=== PATIENT | male | born 1970 | race Caucasian/White ===

== ENCOUNTER 2019-03-29 22:15 | Inpatient (IN) | payer OTHER ==
[~2019-03-29] VITALS: Ht 177.8 cm; Wt 62.6 kg
[2019-03-29 22:16] VITALS: BP 201/127
[2019-03-29] MEDS ORDERED: PROTONIX40 M1 PO (22:20)
[2019-03-29] MEDS ORDERED: CARAFATE1 GM/10 ML PO (22:20)
[2019-03-29] MEDS ORDERED: ACCUNEB SO1.25 MG/1 INH (22:20)
[2019-03-29 22:53] LABS: URINE BILIRUBIN NEGATIVE (Negative); URINE BLOOD NEGATIVE (Negative); URINE CLARITY CLEAR; URINE COLOR YELLOW; URINE GLUCOSE-RANDOM* NEGATIVE (Negative); URINE KETONES NEGATIVE (Negative); URINE LEUKOCYTES-REFLEX NEGATIVE (Negative); URINE NITRITE-REFLEX NEGATIVE (Negative); URINE PROTEIN (DIPSTICK) 1+ (Negative); URINE SPECIFIC GRAVITY 1.015 (1.005-1.035); URINE UROBILINOGEN 0.2 E.U./dl (0.2-1.0)
[2019-03-29 22:54] LABS: ABSOLUTE NEUTROPHILS 6.4 thou/uL (1.4-8.2); BASOPHILS 1.1 % (0.0-2.0); HEMATOCRIT 42.1 % (42.0-52.0); HEMOGLOBIN 13.2 gm/dL (14.0-18.0); LYMPHOCYTES 30.1 % (24.0-44.0); MCH 19.8 pg (26.0-34.0); MCHC 31.3 g/dL (28.0-37.0); MCV 63.2 fL (80.0-100.0); PLATELET COUNT 495 thou/uL (150-400); POLYS 57.8 % (36.0-66.0); RBC 6.67 mil/uL (4.50-6.00); RDW 21.4 % (10.5-14.5)
[2019-03-29 23:03] LABS: AMP/METHAMP Negative (Negative); BARBITURATES Negative (Negative); BENZODIAZEPINES Negative (Negative); COCAINE Negative (Negative); METHADONE Negative (Negative); OPIATES Negative (Negative); PCP Negative (Negative)
[2019-03-29 23:05] LABS: BACTERIA-REFLEX None Seen /HPF (None Seen); CASTS None Seen /LPF (None Seen); CRYSTALS None Seen /LPF (None Seen); MUCUS None Seen strn/LPF (None Seen); SQUAMOUS None Seen /LPF (0-3); URINE RBC None Seen /HPF (0-2); URINE WBC-REFLEX None Seen /HPF (0-5)
[2019-03-29 23:11] LABS: CREATININE 1.1 mg/dL (0.7-1.3); POTASSIUM 3.4 mmol/L (3.5-5.1)
[2019-03-29 23:17] LABS: ALBUMIN 4.5 g/dL (3.4-5.0); TOTAL BILIRUBIN 0.8 mg/dL (<0.1-1.0); TOTAL PROTEIN 9.1 g/dL (6.4-8.2)
[2019-03-29 23:36] LABS: ANISOCYTOSIS 2+; HYPOCHROMASIA 3+
[2019-03-29 23:37] LABS: MICROCYTES 3+; POLYCHROMASIA 1+
--- NOTE | 2019-03-29 23:51 | NUR ---
PATIENT RETURNED TO ROOM FROM CT SCAN AT THIS TIME
[2019-03-30] VITALS (7 sets, daily range): BP systolic 151–200; BP diastolic 98–118
[2019-03-30 09:47] LABS: HEMOGLOBIN 12.3 gm/dL (14.0-18.0); MCH 19.7 pg (26.0-34.0); MCHC 31.4 g/dL (28.0-37.0); MCV 62.6 fL (80.0-100.0); RBC 6.23 mil/uL (4.50-6.00); RDW 20.2 % (10.5-14.5); WBC 18.6 thou/uL (4.0-11.0)
[2019-03-30 10:00] LABS: ALBUMIN 3.8 g/dL (3.4-5.0); CALCIUM 9.4 mg/dL (8.5-10.1); CREATININE 0.9 mg/dL (0.7-1.3); POTASSIUM 3.1 mmol/L (3.5-5.1); TOTAL BILIRUBIN 0.7 mg/dL (<0.1-1.0)
[2019-03-30] MEDS ORDERED: NORVASC10 MG PO (16:58)
--- NOTE | 2019-03-30 18:03 | NUR ---
ASSUMED CARE OF PATIENT AT 1200 FROM ER. PATIENT IMMEDIATELY COMPLAINED OF SHARP MIDEPIGASTRIC ABDOMINAL PAIN AT 9/10. PATIENT HAS HICCUPS AND COMPLAINS OF NAUSEA. PATIENT GIVEN PAIN MEDS WITH MINIMAL RELIEF, HE WAS ALSO GIVEN ZOFRAN WITH RELIEF OF HIS NAUSEA. CALL PLACED TO DR. LION AND RECEIVED A ONE TIME DOSE OF MORPHINE, AGAIN WITH MINIMAL RELIEF. PATIENT WAS RESTING QUIETLY WHEN I ENTERED THE ROOM AFTER THE ONE TIME DOSE OF MORPHINE, AND BEGAN TO GET INCREASINGLY RESTLESS I WAS IN THE ROOM. I REVIEWED THE PROTOCOL OF TELE RUNNERS WITH THE PATIENT AND THEY SIGNED THE ACKNOWLEDGEMENT. PATIENT TO CONTINUE WITH POC.
--- NOTE | 2019-03-30 18:46 | NUR ---
ASSUMED CARE OF PATIENT AT 1200 FROM ER. PATIENT REQUESTING PAIN MEDICATION CONTINUOUSLY AND GIVEN AT APPROPRIATE TIME. PATIENT STATED HE RECEIVED MINIMAL RELIEF. HE WAS INFORMED OF THE NEXT TIME MEDS ARE DUE. PATIENT AWAITING GI AND SURGERY CONSULTS. AMLODIPINE REQUESTED BY DR. LION WHICH QUICKLY BROUGHT THE PATIENT'S BLOOD PRESSURE DOWN. PATIENT RESTING COMFORTABLY IN BED. PATIENT TO CONTINUE TO BE FOLLOWED.
[2019-03-31 04:18] VITALS: BP 169/98
--- NOTE | 2019-03-31 05:57 | NUR ---
patient c/o abd pain and headache. called dr. plummer order to change morphine q 4 hours and tylneol. when staff is not in the room patient in bed quiet no s/s of pain or discomfort. when the staff gets in the room patient rubs his head says his pain is a 10/10. pain controlled this shift, patient in bed asleep no s/s of pain or discomfort at this time. personal item and call light within reach. patient in bed asleep at this time breathing regular and unlaboured.
[2019-03-31 07:23] VITALS: BP 165/93
[2019-03-31 10:59] VITALS: BP 162/104
--- NOTE | 2019-03-31 11:59 | HC ---
[facility] [place] [address] CONSULTATION Name: PRIETO LIGHT Room #: 211-P [facility] IN M.R.#: [id number] Admission: 03/30/19 ������������������ Attend Phys: David Landers Discharge: ������������������ Date of : 72 Report #: [id number] THIS REPORT FOR: //name// CC: FAM physician/PCP David Monet MD DATE OF SERVICE: 03/30/2019 HISTORY OF PRESENT ILLNESS: The patient is a 48-year-old male with complaints of abdominal pain. He states he has a component of constant abdominal pain for years. He has been followed by a field naturalist at [facility] apparently. He began having increasing abdominal pain yesterday. I do not have any of his old records, but it appears he has episodes of severe pain that need to be treated in the Emergency Room at times. He underwent a CT scan of the abdomen and pelvis here, which showed no acute changes. He has a known history of gastric bypass surgery, which was noted on CT. 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 He then had an exploratory laparotomy apparently in 2013 for pain and at some point had a partial colon removal. He does report intermittent dysphagia. No previous history of dilations. He states his last upper endoscopy was approximately 8 months ago and he has had history of a marginal ulcer at the anastomosis. He also has been taking Protonix and Carafate. His last colonoscopy was approximately at same time and reportedly negative. His pain is primarily midepigastric and periumbilical, although it can be in other areas he states. There is no correlation of the pain to food. He denies any nausea or vomiting currently, but states when the pain is severe he can have vomiting at times. When I initially began talking with the patient, he was fairly calm. He became more and more agitated; however, as the conversation progressed. This was similar to Dr. Monet's experience yesterday as well. It is unclear if the patient has seen pain management in the past for chronic abdominal pain. I asked the patient if he has been on an antispasmodic in the past. He thinks he may have been on Bentyl in the past. He has not been on Elavil for chronic pain. No fevers or chills at this time. No bright red blood per rectum or melena. No hematemesis. ALLERGIES: LEVAQUIN. PAST MEDICAL HISTORY: Chronic abdominal pain, previous history of possible gastric tumor status post resection with bypass, history of partial colon resection. MEDICATIONS ON ADMISSION: Carafate, Protonix 40 mg p.o. b.i.d., albuterol. SOCIAL HISTORY: He does smoke marijuana. He consumes alcohol, also uses tobacco on a daily basis. [facility] [address] [place] [address] CONSULTATION Name: PRIETO LIGHT Room #: 211-P [facility] IN M.R.#: [id number] Admission: 03/30/19 ������������������ Attend Phys: David Landers Discharge: ������������������ Date of : 72 Report #: [id number] FAMILY HISTORY: Negative for colon cancer in immediate family members, negative for inflammatory bowel disease. REVIEW OF SYSTEMS: As per HPI. PHYSICAL EXAMINATION: VITAL SIGNS: Temperature is 36.8, pulse 90, respirations 12, blood pressure 199/117, O2 sat is 99% on room air. GENERAL: Again, at first he was alert and oriented, in no acute distress, but he became more anxious upon further discussion, HEENT: Sclerae nonicteric. Oropharynx clear. NECK: Supple, without lymphadenopathy. CARDIOVASCULAR: Regular rate and rhythm. CHEST: Clear to auscultation bilaterally. ABDOMEN: Soft. He is nondistended. Positive bowel sounds. He is tender to palpation. Previous incision is well healed. EXTREMITIES: No cyanosis, clubbing or edema. LABORATORY DATA: WBC today is 18.6, last night it was 11.0; hemoglobin 12.3; MCV 62.6; platelet count is 406. Sodium 129, potassium 3.1, chloride 95, bicarbonate 25, BUN 10, creatinine is 0.9, glucose 137, calcium 9.4, total bilirubin 0.7, AST 21, ALT 17, alkaline phosphatase 107, total protein 8.0, albumin 3.8, lipase 158. Urine was essentially negative. CT scan of the abdomen and pelvis last evening showed no CT findings to explain abdominal pain. Normal appendix. Fluid was seen in the colon which can be seen with diarrheal process. No significant bowel wall thickening to suggest a significant colitis. Post-surgical changes of gastric bypass surgery were noted. 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 ASSESSMENT AND PLAN: Chronic abdominal pain, etiology is unclear. CT scan was essentially negative. The patient has had this for a long period of time. He has been followed by a field naturalist at [place]. He has had recent endoscopies within the last 8 months that were apparently negative. He does have a history of a marginal ulcer at his gastric bypass, but he is on b.i.d. PPI therapy supposedly at home as well as Carafate, which should prevent that from recurrence. I do believe there is a psychological component based on his reactions today. I explained to the patient I would recommend starting an antispasmodic such as Levsin at this time, could consider a trial of Elavil which can be helpful with chronic pain issues in the setting of irritable bowel syndrome. I do not think repeat endoscopy at this time would be warranted. White blood cell count is elevated today, but was normal yesterday. We would continue to monitor. [facility] [address] [place] [address] CONSULTATION Name: PRIETO LIGHT Room #: 211-P [facility] IN .R.#: [id number] Admission: 03/30/19 ������������������ Attend Phys: David Landers Discharge: ������������������ Date of : 72 Report #: [id number] Thank you for allowing me to participate in his care. ��������������������������������������������� <ELECTRONICALLY SIGNED> ���������������������������������������� By: Maurice Pa MD ��������������������������������������������� 03/31/19 1159 [id number] Maurice Pa MD /nt
[2019-03-31 15:13] VITALS: BP 132/89
--- NOTE | 2019-03-31 19:22 | NUR ---
ASSUMED CARE OF PATIENT AT 0700. PATIENT IS A&O X 4. ASSESSMENT IS CHARTED. PATIENT DENIES ANY NAUSEA. SEEN BY BOTH GI AND SURGERY TODAY AND PLACED NPO FOR ANTICIPATED EGD IN THE MORNING. PATIENT REQUESTING MORPHINE Q 4 HOURS ROUTINELY. PATIENT RESTING COMFORTABLY IN BED EACH TIME I WALK IN THE ROOM. PATIENT TO CONTINUE WITH POC.
[2019-03-31 19:27] VITALS: BP 131/88
--- NOTE | 2019-03-31 22:14 | NUR ---
progress pt a/o x 4 lungs diminished, skin c/d/i.vss, tele reading sr with rate of 71. pt reports abdominal pain at a rate of 10 out of 0/10 scale. taking 2 mg morphine q4hrs and appears comfortable after. has had 2 falls in the recent past so pt on fall risk precautions, up with assist, bed and chair alarms in place. pt npo pending egd tomorrow. continue plan of care.
[2019-04-01 05:27] VITALS: BP 148/90
--- NOTE | 2019-04-01 06:37 | NUR ---
PATIENTS IS GOING TO THE GI LAB TODAY AT SOME POINT. MAY BE ABLE TO DOWN GRADE THIS PATIENT.PATIENTS CARES WERE ASSUNED AT 2300. PATIENTS WAS ASSESSED AND MEDS WERE PASSED
[2019-04-01 08:14] VITALS: BP 141/94
[2019-04-01 08:17] VITALS: BP 141/94
--- NOTE | 2019-04-01 11:55 | NUR ---
met with patient who is to dc today and has no health insurance. Gave patient health resource guide. He reports he lives with a room mate and applying for disabilty. He reports he moved back to [facility] approx a year ago from [place]. Patient reports trying to reapply for [place] medicaid. He reports he has many health issues. He plans f/u care at [facility].
--- NOTE | 2019-04-01 11:56 | NUR ---
PT ALERT AND ORIENTED TIMES FOUR. VSS, 98%RA, SR ON TELE, IVF INFUSING PER ORDER. EGD DONE THIS MORNING. C/O PAIN PRN PAIN MEDIACTIONS GIVEN WITH SOME RELEIF. PT UP WITH STANDBY ASSIT. PLAN FOR DISCHARGE TODAY. PT PROGRESSING TOWRADS POC GOALS.
[2019-04-01 12:11] VITALS: BP 121/81
[2019-04-01] MEDS ORDERED: TYLENOL EXTRA500 MG PO (15:32)
[2019-04-01] MEDS ORDERED: HYOSCYAMINE0.125 M1 PO (15:32)
[2019-04-01 15:47] VITALS: BP 121/81
--- NOTE | 2019-04-02 17:06 | PATH ---
[facility] [place] [place] [address] PATHOLOGY RPT PROCEDURE Name: PRIETO LIGHT ANNA Room #: 211-P DIS IN M.R.#: [id number] ������������������ Admission: 03/30/19 ������������������ Date of : 72 Discharge: 04/01/19 Report #: [id number] Path Case #: [id number] [facility] Accession Number: [id number] . 01 Material submitted: . PART A: stomach - STOMACH BX FOR ULCER PART B: esophagus - ESOPHAGEAL BX R/O ESOPHAGITIS . 01 Clinical history: . Pre-OP DX: Nausea with vomiting Post-OP DX: Gastric ulcer . 02 Diagnosis: A. Gastric mucosa, stomach for ulcer, endoscopic biopsy: - Mild chronic active gastritis associated with reactive gastropathy. - Negative for intestinal metaplasia or atrophy. - Negative for Helicobacter pylori (properly controlled immunohistochemical stain performed). . B. Squamous mucosa, esophageal, endoscopic biopsy: - Mild active esophagitis. - Negative for intestinal metaplasia or dysplasia. - GMS fungal special stain pending, to be reported as an addendum. (IUV:pit 04/02/2019) QTP/04/02/2019 . 02 Electronically signed: . Hazel Delong MD, Pathologist NPI- [id number] . 01 Gross description: . A. Received in formalin labeled "Prieto Light, stomach BX," and additionally labeled on the requisition as "for ulcer," are 2 segments of ruiz soft tissue measuring 0.6 x 0.2 x 0.2 cm in aggregate dimensions and measuring 0.3 cm each in maximum dimension. The specimen is submitted entirely in cassette A1. . B. Received in formalin labeled "Prieto Light, esophageal BX," and additionally labeled on the requisition as "rule out esophagitis," are 2 segments of ruiz soft tissue measuring 0.9 x 0.2 x 0.1 cm in aggregate dimensions and ranging from 0.4 to 0.5 cm in maximum dimension. The specimen is submitted entirely in cassette B1. (TSD; 04/01/2019) TOB/TOB . 02 Pathologist provided ICD-10: K29.50, K31.9, K20.9 [place] [address] PATHOLOGY RPT PROCEDURE Name: PRIETO LIGHT Room #: 211-P DIS IN M.R.#: [id number] ������������������ Admission: 03/30/19 ������������������ Date of : 72 Discharge: 04/01/19 Report #: [id number] Path Case #: [id number] . 02 CPT . [id number], [id number], [id number] Specimen Comment: A courtesy copy of this report has been sent to Specimen Comment: [phone], . Specimen Comment: Report sent to / DR REED Performed at: [address] [facility], [place] [id number] MD Scott Robles MD Phone: [phone] Performed at: [address] [facility] [id number] MD Hazel Delong MD Phone: [phone]
== END 2019-04-01 17:14 | disposition home or self-care (01) | DRG 382 ==
LOC: ER 22:15 → 2N 03-30 04:23 → EROBS 03-30 04:23 → 2N 03-30 12:00
PROVIDERS: Emergency Medicine; ADMIT Internal Medicine
DX: K28.9 Gastrojejunal ulcer, unspecified as acute or chronic, without hemorrhage or perforation (principal); K20.9 Esophagitis, unspecified; I16.0 Hypertensive urgency; I10 Essential (primary) hypertension; D50.9 Iron deficiency anemia, unspecified; F10.10 Alcohol abuse, uncomplicated; F12.10 Cannabis abuse, uncomplicated; F17.210 Nicotine dependence, cigarettes, uncomplicated; Z71.51 Drug abuse counseling and surveillance of drug abuser; Z71.6 Tobacco abuse counseling; Z71.41 Alcohol abuse counseling and surveillance of alcoholic; Z85.028 Personal history of other malignant neoplasm of stomach; Z90.3 Acquired absence of stomach [part of]; Z79.899 Other long term (current) drug therapy; Z88.1 Allergy status to other antibiotic agents
CPT/HCPCS: 10081; 62110; 62900; 70005